=== PATIENT | female | born 1965 | race Two or more races ===

== ENCOUNTER 2024-08-07 05:55 | Inpatient (IN) | payer OTHER ==
[2024-07-28 12:24] LABS: BASO % 0.6 % (0.1-1.2); EOS # 0.09 (0.04-0.54); EOS % 1.8 % (0.7-7.0); HEMATOCRIT 37.6 % (34.1-44.9); LYMPH # 2.41 (1.18-3.74); LYMPH % 47.9 % (19.3-53.1); MEAN CORPUSCULAR HEMOGLOBIN 33.1 pg (25.6-32.2); MONO # 0.45 (0.24-0.82); MONO % 8.9 % (4.7-12.5); NEUT # 2.04 (1.56-6.13); NEUT % 40.6 % (34.0-71.1); PLATELET COUNT 224 K/uL (163-369); RED BLOOD COUNT 3.93 M/uL (3.93-5.22); RED CELL DISTRIBUTION WIDTH 11.8 % (11.6-14.4)
[2024-07-28 12:25] LABS: URINE BACTERIA 198.2 uL (0.0-1933); URINE EPITHELIAL CELLS 15.1 uL (0.0-38.8); URINE WBC 2.3 uL (0.0-23.2)
[2024-07-28 12:29] LABS: PH,URINE 5.5 (5.0-8.0); URINE APPEARANCE Clear; URINE BILIRRUBIN Negative (NEGATIVE); URINE BLOOD Negative; URINE COLOR Yellow; URINE GLUCOSE Negative (NEGATIVE); URINE KETONE Negative (NEGATIVE); URINE LEUKOCYTE Negative; URINE NITRATE Negative; URINE PROTEIN Negative (NEGATIVE); URINE UROBILINOGEN 0.2 E.U./dl
[2024-07-28 12:30] LABS: URINE CAST 0.29 uL (0.0-1.40)
[2024-07-28 12:44] VITALS: BP 124/82
[2024-07-28 12:59] LABS: INR 0.99; PARTIAL THROMBOPLASTIN TIME 21.5 SECONDS (22.0-34.0); PROTHROMBIN TIME 10.8 SECONDS (9.0-11.5)
[2024-07-28 13:09] LABS: BILIRUBIN TOTAL 0.56 mg/dL (0.3-1.2); CALCIUM 10.8 mg/dL (8.5-10.1); CREATININE SERUM 0.62 mg/dL (0.55-1.02); GFR 97.86; GLOBULINA 3.5 G/DL (2.4-3.5); POTASSIUM 4.15 mEq/L (3.5-5.1); TOTAL PROTEIN 7.5 gm/dL (6.4-8.2)
[~2024-08-07] VITALS: Ht 152.4 cm; Wt 61.2 kg
[~2024-08-07 05:55] MED LIST: CATAFLAM; CYMBALTA20 MG
[2024-08-07] MEDS ORDERED: DEXAMETHASONE SODIUM PHOSPHATE 4 MG/ML VIAL ONE (09:25)
[2024-08-07] MEDS ORDERED: ONDANSETRON HCL 2 MG/ML VIAL IV PRN (09:30)
[2024-08-07] MEDS ORDERED: ENALAPRILAT DIHYDRATE 1.25 MG/ML VIAL IV PRN (09:30)
[2024-08-07 16:54] VITALS: BP 131/78; O2SAT 90
[2024-08-07] MEDS ORDERED: ACETAMINOPHEN 500 MG GEL..CAP PO SCH (17:00)
[2024-08-07] MEDS ORDERED: TRAMADOL HCL 50 MG TABLET PO SCH (17:00)
[2024-08-07] MEDS ORDERED: DIPHENHYDRAMINE HCL 150 MG,LIDOCAINE HCL 60 ML,MAG HYDROX/ALUMINUM HYD/SIMETH 60 ML PO SCH (17:00)
[2024-08-07] MEDS ORDERED: PANTOPRAZOLE SODIUM 40 MG/VIAL VIAL IV PUSH SCH (21:00)
[2024-08-07] MEDS ORDERED: CYCLOBENZAPRINE HCL 5 MG TABLET PO SCH (21:00)
[2024-08-08] VITALS: BP 107/65; O2SAT 95
[2024-08-08] MEDS ORDERED: MAG HYDROX/ALUMINUM HYD/SIMETH 30 ML BLIST.PACK PO ONE (07:46)
[2024-08-08 08:41] VITALS: BP 107/60; O2SAT 95
== END 2024-08-08 15:11 | disposition home or self-care (01) | DRG 627 ==
LOC: CIR.AMB 05:55 → SURG 15:43 → O/R 15:43 → SURG 16:00
PROVIDERS: ADMIT Surgery; ATTEND Surgery
PROC: 0GBL0ZZ Excision of Right Superior Parathyroid Gland, Open Approach (ICD-10-PCS; 2024-08-07)
PROC: 0GBM0ZZ Excision of Left Superior Parathyroid Gland, Open Approach (ICD-10-PCS; 2024-08-07)
PROC: 0GBP0ZZ Excision of Left Inferior Parathyroid Gland, Open Approach (ICD-10-PCS; principal; 2024-08-07 12:30)
DX: E21.0 Primary hyperparathyroidism (principal)